=== PATIENT | female | born 1985 | race Hispanic/Latino ===

== ENCOUNTER 2023-03-14 20:18 | Emergency (ER) | payer BC, SELFPAY ==
[2023-03-14 22:02] LABS: Bilirubin Neg (Negative); Blood, Urine 250 (Negative); Clarity Clear (Clear); Glucose, Urine (Dipstick) Normal (Negative); Ketone, Urine Negative (Negative); Leukocyte Negative (Negative); Nitrite Negative (Negative); Protein, Urine (Dipstick) 15 mg/dl (Neg-Trace); Specific Gravity, Urine 1.025 (1.005-1.030)
[2023-03-14 22:43] LABS: RBC/HPF 21-50 HPF (0-3)
[2023-03-14 22:44] LABS: Bacteria/HPF None Seen HPF (None Seen); CAUTI Indications for Culture Pregnancy; Squamous Epithelial 0-3 HPF (0-3); WBC/HPF 0-3 HPF (0-3)
[2023-03-14 22:45] LABS: Urine Culture Reflex Yes Yes
== END 2023-03-14 23:25 | disposition home or self-care (01) ==
LOC: CSHERS 20:18
DX: O20.8 Other hemorrhage in early pregnancy (principal); O99.281 Endocrine, nutritional and metabolic diseases complicating pregnancy, first trimester; E03.9 Hypothyroidism, unspecified; Z3A.01 Less than 8 weeks gestation of pregnancy; Z79.899 Other long term (current) drug therapy
CPT/HCPCS: 36415; 76856; 81001; 84702; 87086

== ENCOUNTER 2023-03-15 14:07 | Emergency (ER) | payer SELFPAY | END 2023-03-15 17:52 | disposition home or self-care (01) | LOC: CSHERS 14:07 | DX: N93.9 Abnormal uterine and vaginal bleeding, unspecified (principal); Z29.13 Encounter for prophylactic Rho(D) immune globulin | CPT/HCPCS: 36415; 86900; 86901; 90384; 96372; 99284 ==

== ENCOUNTER 2023-04-04 20:57 | Emergency (ER) | payer SELFPAY ==
[2023-04-04 21:36] LABS: #Eosinphils 0.2 10x3/uL (0.0-0.5); #Monocytes 0.6 10x3/uL (0.0-1.1); %Basophils 0.5 % (0.0-2.0); %Eosinophils 2.3 % (0.0-6.0); %Lymphocytes 31.3 % (18.0-47.0); %Monocytes 7.1 % (0.0-10.0); %Neutrophils 58.5 % (40.0-75.0); Hematocrit 36.6 % (34.9-44.5); Hemoglobin 12.9 g/dL (12.0-15.5); Mean Corpuscular HGB CONC 35.2 g/dL (32.0-36.0); Mean Corpuscular Hemoglobin 29.9 pg (27.0-33.0); Mean Corpuscular Volume 84.9 fl (81.6-98.3); Mean Platelet Volume 10.6 fl (7.4-10.4); Platelet Count 296 10x3/uL (150-450); RBC Distribution Width 13.3 % (11.5-14.5); Red Blood Cell (RBC) Count 4.31 10x6/uL (3.90-5.03); White Blood Cell (WBC) Count 8.6 10x3/uL (3.5-10.5)
[2023-04-04 21:50] LABS: ALT (SGPT) 13 U/L (8-55); AST (SGOT) 18 U/L (5-34); Alkaline Phosphatase 40 U/L (40-110); Anion Gap 16 mmol/L (10-20); BUN (Urea Nitrogen) 15 mg/dL (7.0-18.7); Bilirubin, Total 0.3 mg/dL (0.2-1.2); Calc. Creatinine Clearance 0 mL/min (70-130); Calcium 9.1 mg/dL (7.8-10.44); Carbon Dioxide 18 mmol/L (22-29); Chloride 107 mmol/L (98-107); Estimated GFR 117; Globulin 2.8 g/dL (2.4-3.5); Glucose 112 mg/dL (70-105); Potassium 3.7 mmol/L (3.5-5.1); Protein, Total 6.8 g/dL (6.0-8.3); Sodium 137 mmol/L (136-145)
[2023-04-04 22:11] LABS: Bilirubin Neg (Negative); Blood, Urine 250 (Negative); Clarity Cloudy (Clear); Glucose, Urine (Dipstick) Normal (Negative); Ketone, Urine 15 mg/dL (Negative); Leukocyte 25 (Negative); Nitrite Negative (Negative); Protein, Urine (Dipstick) 30 mg/dl (Neg-Trace); Specific Gravity, Urine 1.025 (1.005-1.030)
[2023-04-04 22:33] LABS: RBC/HPF Greater than 50 HPF (0-3)
[2023-04-04 22:35] LABS: CAUTI Indications for Culture Pregnancy
[2023-04-04 22:36] LABS: Squamous Epithelial 0-3 HPF (0-3)
[2023-04-04 22:37] LABS: Bacteria/HPF 2+ HPF (None Seen)
[2023-04-04 22:39] LABS: Urine Culture Reflex Yes Yes
== END 2023-04-05 01:11 | disposition home or self-care (01) ==
LOC: CSHERS 20:57
DX: O20.0 Threatened abortion (principal); Z3A.09 9 weeks gestation of pregnancy; E03.9 Hypothyroidism, unspecified; Z79.899 Other long term (current) drug therapy
CPT/HCPCS: 76856; 80053; 81001; 84702; 85025; 86850; 86870; 86900; 86901; 87086

== ENCOUNTER 2023-08-27 07:40 | Day surgery (SDC) | payer SELFPAY ==
[2023-08-27] MEDS ORDERED: Acetaminophen 500 MG TAB ONE (07:57)
[2023-08-27] MEDS ORDERED: Acetaminophen 500 MG TAB PO SCH (08:00)
[2023-08-27] MEDS ORDERED: Iron Sucrose Complex 500 MG in Sodium Chloride 0.9% 250 ML 250 ML IVPB SCH (08:00)
== END 2023-08-27 12:30 | disposition home or self-care (01) ==
LOC: CSHSDC 07:40
PROVIDERS: ATTEND Student in an Organized Health Care Education/Training Program
DX: O99.019 Anemia complicating pregnancy, unspecified trimester (principal); O99.280 Endocrine, nutritional and metabolic diseases complicating pregnancy, unspecified trimester; E03.9 Hypothyroidism, unspecified; O99.619 Diseases of the digestive system complicating pregnancy, unspecified trimester; K21.9 Gastro-esophageal reflux disease without esophagitis; O99.810 Abnormal glucose complicating pregnancy; Z98.84 Bariatric surgery status; Z79.890 Hormone replacement therapy; Z79.899 Other long term (current) drug therapy; Z3A.00 Weeks of gestation of pregnancy not specified
CPT/HCPCS: J1756; J7050

== ENCOUNTER 2023-10-19 00:25 | Day surgery (SDC) | payer SELFPAY ==
[2023-10-19 00:47] VITALS: BMI 26.4
[2023-10-19] MEDS ORDERED: hydrALAZINE 20 MG/ML VIAL SLOW IVP PRN (01:12)
== END 2023-10-19 03:54 | disposition home or self-care (01) ==
LOC: CSHLD/OP 00:25
PROVIDERS: ATTEND Obstetrics & Gynecology
DX: O36.8130 Decreased fetal movements, third trimester, not applicable or unspecified (principal); O99.013 Anemia complicating pregnancy, third trimester; O00.01 Abdominal pregnancy with intrauterine pregnancy; O09.523 Supervision of elderly multigravida, third trimester; Z79.899 Other long term (current) drug therapy; Z3A.37 37 weeks gestation of pregnancy
CPT/HCPCS: 76819